=== PATIENT | female | born 1935 | race Caucasian/White ===

== ENCOUNTER 2016-09-14 20:11 | Inpatient (IN) | payer MEDICARE, OTHER ==
[2016-09-14 20:28] VITALS: BP 123/64
[2016-09-14] MEDS ORDERED: Magnesium Hydroxide (MOM) 30 mL UDC PO PRN (20:38)
[2016-09-15] MEDS: Multivitamin Tab PO SCH (08:25)
[2016-09-15] MEDS: Maalox 30 mL Cup PO PRN (22:09)
[2016-09-16] MEDS: Ipratropium Neb 0.5 mg/2.5 mL UD HHN PRN ×2 (07:43→16:22)
[2016-09-16] MEDS: Multivitamin Tab PO SCH (08:52)
--- NOTE | 2016-09-17 01:00 | Progress Notes ---
DATE: 09/16/2016 Case was discussed with staff of the patient, reviewed records. The patient continues to be agitated and delusional. Continues to be unpredictable, impulsive, and very poor insight. Unable to make safe plan for self-care. Continues to be hyperverbal. The patient is on Risperdal 0.5 mg twice a day that I started her on yesterday and so far she is compliant with the medication with no side effects, no sedation, no nausea, and no extrapyramidal symptoms, and we will continue to work with the patient in group therapy, milieu therapy, and adjust the medication as needed. JOB# [id number]
[2016-09-17] MEDS: Maalox 30 mL Cup PO PRN (09:48)
[2016-09-17] MEDS: Multivitamin Tab PO SCH (09:48)
--- NOTE | 2016-09-17 19:38 | History & Physical ---
ADMIT DATE: 09/15/2016 IDENTIFYING INFORMATION: The patient is an 81-year-old female. CHIEF COMPLAINT: "I needed a cigarette." HISTORY OF PRESENT ILLNESS: The patient was admitted on a hold for grave disability, danger to self and danger to others. The patient apparently has been acting aggressive. A elementary school social worker was called because of agitation, aggressive behavior, delusional, psychotic. When I talked to the patient, she was hyperverbal. She was minimizing the event that led to her admission. She reports she had no problems until last week, she was in a psych facility, but then later, she admits that she tried to overdose on boric acid at age 17. She believed that she has a connection mentally with her boyfriend and she could see what he sees. She has not been sleeping or eating well. She is unpredictable, impulsive, unable to make safe plan for self-care. PAST PSYCHIATRIC HISTORY: Is big. This patient has prior psychiatric admission for prior suicide attempt. PAST MEDICAL HISTORY ALLERGIES: The patient is allergic to PENICILLIN, SULFONAMIDE ANTIBIOTIC. The patient is unable to tell me if she has any medical condition or not. FAMILY AND SOCIAL HISTORY: The patient reports that she is . She has a boy that is 40 years of age, but yet at the same time, she told me she had 11th grade education because she got and I am not sure. She was unable to tell me what happened to that . She reports she is a [employer]. She reports no substance abuse; however, the staff reported that she has been med seeking. She has a boyfriend. I asked her about his age, she was unable to tell me. She denies any family history of psychotic disorder; however, she is a poor historian. She denies having any legal problem. MENTAL STATUS EXAMINATION: The patient is appropriately dressed, not well groomed. She was hyperverbal, delusional, believes she has a connection mentally with her boyfriend and she can see the same thing that he sees. The patient denies any intent to harm herself or anybody. She has not been sleeping or eating well. She was able to tell me her date of . She was able to tell me the current President, who was before him; however, she was hyperverbal, delusional, unable to make safe plan for self-care, unpredictable, impulsive. She seems to have average intelligence. Her long and short term memory is intact. Her insight, she does not believe to have a problem. She believes she is here because she wants a cigarette. Her insight and judgment are impaired. IMPRESSION: AXIS I: Psychosis, not otherwise specified; rule out bipolar disorder with psychosis. The patient denies substance abuse problem, rule out drug-induced psychosis. Her assets, she wants to get help. Negative, poor coping skills. INITIAL TREATMENT PLAN: The patient will be started on Risperdal. We will do group therapy, milieu therapy, and individual therapy. ESTIMATED LENGTH OF STAY: 3-7 days. DISCHARGE CRITERIA: Decrease in psychosis, agitation, having a good place to go to after discharge, and outpatient treatment. [facility]# [id number]
[2016-09-17] MEDS: Ipratropium Neb 0.5 mg/2.5 mL UD HHN PRN (22:14)
--- NOTE | 2016-09-18 04:32 | Progress Notes ---
DATE: 09/17/2016 Case was discussed with staff of the patient, reviewed records. The patient continues to be rambling, delusional. Continues to be unable to make safe plan for self-care. Continues to have poor insight with pressured speech, generally uncooperative, having multiple somatic complaints, minimizing the events that led to her admission, talking about her fiance, and we will continue to work with the patient in group therapy, milieu therapy, and adjust the medication as needed. I did initiate her on Risperdal 0.5 mg twice a day yesterday, so we will make further adjustments later and I will continue to work with the patient in group therapy, milieu therapy, and adjust the medication as needed. JOB# [id number]
[2016-09-18] MEDS: Ipratropium Neb 0.5 mg/2.5 mL UD HHN PRN (05:53)
[2016-09-18] MEDS: Multivitamin Tab PO SCH (08:45)
--- NOTE | 2016-09-18 21:58 | General Progress Note ---
Subjective - Review of Systems Service Date: 09/18/16 Subjective: Patient doing fine denied any complaints nursing staff reported pt's BP still remains high Objective - Physical Exam Vitals and I&O: Vital Signs Temp 97.6 F 09/18/16 20:13 Pulse 103 09/18/16 20:13 Resp 20 09/18/16 20:13 BP 176/95 09/18/16 20:13 Pulse Ox 91 09/18/16 20:13 Intake & Output 09/18/16 09/18/16 09/19/16 06:59 18:59 06:59 Intake Total 240 800 120 Balance 240 800 120 Intake: Oral 240 800 120 Other: # Voids 3 3 3 # Bowel Movements 0 1 0 Active Medications: Current Medications Acetaminophen (Tylenol) 650 mg PO Q4HR PRN PRN Reason: Pain (Mild) Stop: 11/13/16 20:37 Al Hydrox/Mg Hydrox/Simethicone (Maalox) 30 ml PO Q4HR PRN PRN Reason: GI DISTRESS Stop: 11/13/16 20:37 Last Admin: 09/17/16 09:48 Dose: 30 ml Clonidine HCl (Catapres) 0.1 mg PO Q6HR PRN PRN Reason: SBP>180 Stop: 11/14/16 15:52 Last Admin: 09/15/16 20:45 Dose: 0.1 mg Ipratropium [place] (Atrovent Neb 0.5mg/2.5ml) 0.5 mg HHN Q4HRT PRN PRN Reason: Short of breath Stop: 11/13/16 22:59 Last Admin: 09/18/16 05:53 Dose: 0.5 mg Lisinopril (Zestril) 20 mg PO DAILY OSMANI Stop: 11/17/16 17:11 Lorazepam (Ativan) 0.5 mg PO Q4HR PRN; Protocol PRN Reason: Anxiety Stop: 10/14/16 20:37 Multivitamins/Vitamin C (Theragran) 1 tab PO DAILY OSMANI Stop: 11/14/16 08:59 Last Admin: 09/18/16 08:45 Dose: 1 tab Nitrofurantoin Macrocrystals (Macrobid) 100 mg PO BID OSMANI PRN Reason: Protocol Stop: 11/15/16 19:44 Last Admin: 09/18/16 17:06 Dose: 100 mg Phenazopyridine HCl (Pyridium) 100 mg PO TID OSMANI Stop: 11/15/16 20:59 Last Admin: 09/18/16 21:28 Dose: 100 mg Risperidone (Risperdal) 0.5 mg PO BID OSMANI PRN Reason: Protocol Stop: 11/14/16 16:59 Last Admin: 09/18/16 17:06 Dose: 0.5 mg Zolpidem Tartrate (Ambien) 5 mg PO HS PRN PRN Reason: Insomnia Stop: 11/13/16 20:37 Last Admin: 09/18/16 21:28 Dose: 5 mg Cardiovascular: Regular rate Lungs: Clear to auscultation Assessment/Plan - Problem List Patient Problems: All Active Problems COPD (chronic obstructive pulmonary disease) (Acute) HTN (hypertension) (Acute) I10 Weakness (Acute) - Assessment Assessment: HTN UTI COPD Nicotine depenancy Psych disorder - Plan Plan: Lisinopril 10mg stat given Lisinopril increased to 20 mg daily Monitor BP Continue Macrobid DC pyridium Psych Rx per Psychiatrist Smoking cessation advised Plan of care discussed with nursing staff
[2016-09-19] MEDS: Ipratropium Neb 0.5 mg/2.5 mL UD HHN PRN ×2 (01:48→17:04)
--- NOTE | 2016-09-19 04:27 | History & Physical ---
ADMIT DATE: 09/14/2016 REASON FOR ADMISSION: Psychiatric disorder. HISTORY OF PRESENT ILLNESS: This is an 81-year-old female with underlying history of hypertension and COPD who was admitted for evaluation of the underlying psychiatric illness by Dr. Hussein. Dr. Hussein requested ____ this patient. The patient says that she is doing fine. Denies any complaints or concerns. PAST MEDICAL HISTORY: COPD, hypertension, chronic smoker, ____. PAST SURGICAL HISTORY: Noncontributory. SOCIAL HISTORY: Positive for daily tobacco smoking. No reported alcohol or street drug use. CURRENT MEDICATIONS: Per medication reconciliation is reviewed. ALLERGIES: ALLERGIC TO PENICILLIN AND SULFA. REVIEW OF SYSTEMS: As per HPI. A 12-point system review appears negative. PHYSICAL EXAMINATION: VITAL SIGNS: Temperature 97.4, pulse 88, respiration 18, blood pressure 122/64. HEART: S1 normal. LUNGS: Clear to auscultation. ABDOMEN: Soft. No distention. NEUROLOGIC: The patient is awake, somewhat confused, grossly nonfocal ____ edema. ASSESSMENT: 1. Hypertension. 2. Urinary tract infection. 3. Chronic obstructive pulmonary disease. 5. Chronic smoker. 6. Psych disorder. PLAN: The patient will be continued on lisinopril, monitor blood pressure closely, continue Pyridium and Macrobid. Albuterol and Atrovent inhaler as needed. Smoking cessation advised. Psych ____ by psychiatrist. The patient medically still ____ [facility]. Thank you Dr. Hussein for allowing me to participate in the care of this patient. JOB# [id number]
--- NOTE | 2016-09-19 06:46 | Progress Notes ---
DATE: 09/18/2016 SUBJECTIVE: The patient is currently in the hospital, hold for grave disability. She was aggressive, acting up behaviors, delusional, psychotic. On [id number], the patient is a poor historian, very fixated on her roommate at her previous facility, rambling on, difficult to redirect, not oriented. The patient continues to require a lot of prompting and redirection. Sleeping fairly well and eating well. ASSESSMENT: The patient is symptomatic, rambling, seems tangential on exam, poor historian, concerns for behaviors, given her presentation. PLAN: We will continue to monitor. Dr. Arevalo had been seeing this patient in my absence, noting continued somatic complaints, pressured speech, not cooperative. We will continue to titrate medications, monitor closely, and increase collateral. JOB# [id number]
[2016-09-19] MEDS: Multivitamin Tab PO SCH (09:44)
[2016-09-20] MEDS: Ipratropium Neb 0.5 mg/2.5 mL UD HHN PRN (03:02)
--- NOTE | 2016-09-20 05:20 | Progress Notes ---
DATE: 09/19/2016 SUBJECTIVE: The patient was seen, chart reviewed, discussed with staff. The patient remains symptomatic, still pretty confused, does not really know why she is here, still rambling at times, currently gravely disabled, unable to locate a place for her to live at this time and she cannot care for herself at this time, concerns for her ability to handle her basic food, clothing, and chcf. She is calm at this time, no distress noted, no combative behaviors. Medications were reviewed. No side effects. ASSESSMENT: The patient remains symptomatic, still somewhat confused, disoriented, gravely disabled, concerns for her ability to handle her basic needs. PLAN: We will continue to monitor, monitor closely for any side effects. We are working with Social Work to find placement. JOB# [id number]
[2016-09-20] MEDS: Multivitamin Tab PO SCH (09:53)
--- NOTE | 2016-09-20 12:53 | General Progress Note ---
Subjective - Review of Systems Service Date: 09/20/16 Subjective: Patient doing fine denied any complaints BP seems better Objective - Physical Exam Vitals and I&O: Vital Signs Temp 71 F 09/20/16 06:32 Pulse 94 09/20/16 09:53 Resp 20 09/20/16 08:00 BP 121/58 09/20/16 09:53 Pulse Ox 96 09/20/16 07:30 Intake & Output 09/19/16 09/20/16 09/20/16 18:59 06:59 18:59 Intake Total 1600 240 Balance 1600 240 Weight (lbs) 62.233 kg Intake: Oral 1600 240 Other: # Voids 4 3 # Bowel Movements 0 Active Medications: Current Medications Acetaminophen (Tylenol) 650 mg PO Q4HR PRN PRN Reason: Pain (Mild) Stop: 11/13/16 20:37 Last Admin: 09/20/16 10:39 Dose: 650 mg Al Hydrox/Mg Hydrox/Simethicone (Maalox) 30 ml PO Q4HR PRN PRN Reason: GI DISTRESS Stop: 11/13/16 20:37 Last Admin: 09/17/16 09:48 Dose: 30 ml Clonidine HCl (Catapres) 0.1 mg PO Q6HR PRN PRN Reason: SBP>180 Stop: 11/14/16 15:52 Last Admin: 09/15/16 20:45 Dose: 0.1 mg Ipratropium [place] (Atrovent Neb 0.5mg/2.5ml) 0.5 mg HHN Q4HRT PRN PRN Reason: Short of breath Stop: 11/13/16 22:59 Last Admin: 09/20/16 03:02 Dose: 0.5 mg Lisinopril (Zestril) 20 mg PO DAILY OSMANI Stop: 11/17/16 17:11 Last Admin: 09/20/16 09:53 Dose: Not Given Lorazepam (Ativan) 0.5 mg PO Q4HR PRN; Protocol PRN Reason: Anxiety Stop: 10/14/16 20:37 Last Admin: 09/19/16 14:16 Dose: 0.5 mg Multivitamins/Vitamin C (Theragran) 1 tab PO DAILY OSMANI Stop: 11/14/16 08:59 Last Admin: 09/20/16 09:53 Dose: 1 tab Nitrofurantoin Macrocrystals (Macrobid) 100 mg PO BID OSMANI PRN Reason: Protocol Stop: 11/15/16 19:44 Last Admin: 09/20/16 09:53 Dose: 100 mg Phenazopyridine HCl (Pyridium) 100 mg PO TID OSMANI Stop: 11/15/16 20:59 Last Admin: 09/20/16 09:53 Dose: 100 mg Risperidone (Risperdal) 0.5 mg PO BID OSMANI PRN Reason: Protocol Stop: 11/14/16 16:59 Last Admin: 09/20/16 09:53 Dose: 0.5 mg Zolpidem Tartrate (Ambien) 5 mg PO HS PRN PRN Reason: Insomnia Stop: 11/13/16 20:37 Last Admin: 09/19/16 21:27 Dose: 5 mg Cardiovascular: Regular rate, Normal S1, Normal S2 Lungs: Clear to auscultation Assessment/Plan - Problem List Patient Problems: All Active Problems COPD (chronic obstructive pulmonary disease) (Acute) HTN (hypertension) (Acute) I10 Weakness (Acute) - Assessment Assessment: HTN UTI COPD Nicotine depenancy Psych disorder - Plan Plan: BP better Continue lisinopril 20mg daily Monitor BP Continue Macrobid DC pyridium Psych Rx per Psychiatrist Smoking cessation advised Plan of care discussed with nursing staff Nutritional Asmnt/Malnutr-PDOC - Dietary Evaluation Malnutrition Findings (Please click <Entered> for more info): Nutritional Asmnt/Malnutrition Start: 09/19/16 14: 18 Text: Status: Complete Freq: Document 09/19/16 14:18 GSUN (Rec: 09/19/16 14:28 GSUN [id number]) Nutritional Asmnt/Malnutrition Patient General Information Nutritional Screening Moderate Risk Screening Diagnosis Psychosis Pertinent Medical Hx/Surgical Hx HTN, COPD, chronic smoker Subjective Information 81 year old from SNF. Per H&P, pt is hyperverbal and delusional, which RD also observed from speaking to pt. Pt is a poor historian, most responses were irrelevant to RD's questions. Observed pt ambulating from bathroom to bed. Properly calibrated bedscale, CBW 137.2lb. Pt stated the food is good. Avg PO itnake 75-100%, meeting nutritional needs. Pt is edentulous, denied difficulties chewing/ swallowing. Current Diet Order/ Nutrition Support MYA, chopped Pertinent Medications Maalox, Theragran Pertinent Labs No labs. Nutritional Hx/Data Height 12.7 cm Height (Calculated Centimeters) 12.7 Current Weight (lbs) 62.233 kg Weight (Calculated Kilograms) 62.2 Weight (Calculated Grams) 97666.9 [place] Body Weight 100 Weight Status Overweight GI Symptoms Food Allergies No Skin Integrity/Comment: Mandeep 20. Skin intact. Current %PO Good (75-100%) Estimated Nutritional Goals Calories/Kcals/Kg IBW 100lb/45.5kg Kcals Calculated 1138-1365kcal (25-30kcal/kg) Protein g/kg: IBW Protein Calculated 46g (1g/kg) Fluid: ml 1138-1365ml (1ml/kcal) Nutritional Problem 1. Problem Problem No nutritional problems at this time. Intervention/Recommendation Comments 1. Continue with MYA chopped. Avg PO intake is adequate. 2. Briefly discussed healthy weight for age. Expected Outcomes/Goals Expected Outcomes/Goals 1. PO intake conitnue to meet at least 75% of estimated nutritional needs.
[2016-09-21] MEDS: Ipratropium Neb 0.5 mg/2.5 mL UD HHN PRN ×2 (01:27→14:02)
--- NOTE | 2016-09-21 04:36 | Progress Notes ---
DATE: 09/20/2016 SUBJECTIVE: The patient was seen, chart reviewed, discussed with staff. The patient is currently in the hospital, gravely disabled, aggressive, agitated, delusional, psychotic and hyperverbal on [id number]. The patient remains somewhat disoriented, but she is calmer on exam. Needs prompting for ADLs and prompting to eat. Poor Insight, still with pressured speech, tangential, jumping from one topic to the next. Still believes that she can leave the hospital and take care of herself, but we have concerns about her ability to counter her basic food, clothing and senior care, concerns for grave disability. She is taking medications. We will continue Risperdal. ASSESSMENT: The patient remains disoriented, not safe for a lower level of care at this time. We are trying to help her with placement. PLAN: We will continue to make medication adjustments to target her symptoms. [facility]# [id number]
[2016-09-21] MEDS: Multivitamin Tab PO SCH (09:06)
--- NOTE | 2016-09-22 02:35 | Progress Notes ---
DATE: 09/21/2016 SUBJECTIVE: The patient is seen, chart reviewed, and discussed with staff. The patient remains gravely disabled, unkempt, not sleeping very well at night, still with pressured speech at times, tangential, disoriented, still wants to leave the hospital, but we have no place to send her at this time. She cannot care for her basic food, clothing, and nursing home. Staff is trying to ___prompt and tend__ to her ADLs better as she is pretty unkempt. ASSESSMENT: The patient is disoriented, appearing somewhat over sedated, not sleeping well at night. Either, it is because she is not sleeping well or it is because of the medications. PLAN: We will lower IM dosing __of meds;__ We will discontinue a.m. Risperdal to see if this helps to her sedation. We will continue p.r.n. dosing of sleep medications at night time. [facility]# [id number] [facility]
[2016-09-22] MEDS: Multivitamin Tab PO SCH (09:22)
[2016-09-22] MEDS: Ipratropium Neb 0.5 mg/2.5 mL UD HHN PRN (11:06)
[2016-09-22] MEDS: Maalox 30 mL Cup PO PRN (14:50)
[2016-09-23] MEDS: Ipratropium Neb 0.5 mg/2.5 mL UD HHN PRN ×2 (00:04→17:19)
--- NOTE | 2016-09-23 00:59 | Progress Notes ---
DATE: 09/22/2016 SUBJECTIVE: The patient is seen, chart reviewed, discussed with staff. The patient remains somewhat confused, symptomatic, currently gravely disabled, unable to care for her basic needs. She states she wants to look for a place for herself, but is really____ not able to. Her thought processes were too fragmented, disoriented. She has been calm, cooperative, getting along well with staff and peers, still requiring prompting for ADLs, prompting for eating. ASSESSMENT: The patient is disoriented, fragmented thought processes, unable to care for her basic needs, but on a positive note, she is more awake. PLAN: Continue to monitor, it seems the lower____ doses of her medications did help, we will monitor closely for any overt side effects and continue to work____ on placements. JOB# [id number]
[2016-09-23] MEDS: Multivitamin Tab PO SCH (09:35)
[2016-09-24] MEDS: Multivitamin Tab PO SCH (08:26)
[2016-09-24] MEDS: Maalox 30 mL Cup PO PRN (11:42)
--- NOTE | 2016-09-24 11:43 | Progress Notes ---
DATE: 09/23/[address] Hussein. SUBJECTIVE: The patient was seen and evaluated. The patient's chart reviewed. The patient is an 81-year-old female who was initially brought in here. After she was brought in on hold, acting very aggressive and bizarre and delusional. Overnight nursing staff reported that the patient has been heavily responding to herself, talking to herself, hyperverbal, although some noted improvement. On [id number] evaluation, the patient perseverates that she is engaged and that she is going to have her ____ outside ____. MENTAL STATUS EXAMINATION: Still disorganized, delusional, poor insight, judgment, and impulse control. ASSESSMENT AND PLAN: The patient is an 81-year-old female who continues to be disorganized and psychotic. We will continue with primary psychiatrist's treatment and plan and goals, which includes risperidone 0.5 mg at nighttime to target the patient's ____ psychotic thought process. JOB# [id number]
[2016-09-24] MEDS: Ipratropium Neb 0.5 mg/2.5 mL UD HHN PRN ×2 (16:09→22:23)
--- NOTE | 2016-09-24 23:55 | Progress Notes ---
DATE: 09/24/[address] Hussein. SUBJECTIVE: Nursing staff reported that the patient is observed to be hyperverbal at times and pacing in and out. Today on [id number] evaluation, the patient is observed to be pacing in the hallway, minimally interactive and minimally participating. She is preoccupied ____. MENTAL STATUS EXAMINATION: Still disorganized, psychotic and internally preoccupied. ASSESSMENT AND PLAN: The patient is an 81-year-old female who continues to present still very disorganized, very disoriented and fragmented thought process, unable to care for her basic needs. We will continue monitoring, evaluating and continue with primary psychiatric treatment plan and goals. JOB# [id number]
[2016-09-25] MEDS: Multivitamin Tab PO SCH (09:09)
[2016-09-25] MEDS: Ipratropium Neb 0.5 mg/2.5 mL UD HHN PRN (13:56)
[2016-09-25] MEDS: Maalox 30 mL Cup PO PRN (21:09)
[2016-09-26] MEDS: Ipratropium Neb 0.5 mg/2.5 mL UD HHN PRN ×5 (01:13→22:39)
--- NOTE | 2016-09-26 08:49 | Progress Notes ---
DATE: 09/25/2016 SUBJECTIVE: The patient was seen, chart reviewed, and discussed with staff. The patient remains hyperverbal, preoccupied, pacing, withdrawn, confused, ____ still awaiting confirmation of placement. The patient is unable to care for her basic needs. She is confused, ____ however, she is tolerating __treatment__ eating with prompting, ADLs with prompting. ASSESSMENT: The patient is disorganized, disoriented, fragmented thought processes, requiring a lot of redirection. PLAN: Continue to monitor. We will coordinate care with psychotherapist social worker. JOB# [id number] [facility]
[2016-09-26] MEDS: Multivitamin Tab PO SCH (09:11)
[2016-09-26] MEDS: Maalox 30 mL Cup PO PRN (13:13)
[2016-09-27] MEDS: Ipratropium Neb 0.5 mg/2.5 mL UD HHN PRN ×3 (04:28→22:08)
--- NOTE | 2016-09-27 05:39 | Progress Notes ---
DATE: 09/26/2016 SUBJECTIVE: The patient was seen, chart reviewed, discussed with staff. The patient is still somewhat disoriented and confused. Placement has been confirmed, does seem to be some improvement, and now she is more redirectable, seems to be tolerating the medications, no side effects. No agitation. No escalation of behaviors. Sleeping well, eating well. ASSESSMENT: Improvement has been noted. We will continue to adjust and titrate medications, no side effects. The patient also is with better attention to ADLs, more amenable to care. Still somewhat disoriented, but likely approaching her baseline. PLAN: Continue to monitor and titrate medications as tolerated. We will coordinate care with social work regarding safe discharge plan with psychiatric followup. We will confirm placement. JOB# [id number]
[2016-09-27] MEDS: Maalox 30 mL Cup PO PRN ×2 (06:09→21:07)
[2016-09-27] MEDS: Multivitamin Tab PO SCH (08:27)
[2016-09-28] MEDS: Ipratropium Neb 0.5 mg/2.5 mL UD HHN PRN ×3 (07:19→19:29)
--- NOTE | 2016-09-28 08:15 | Progress Notes ---
DATE: 09/27/2016 SUBJECTIVE: The patient is seen, chart reviewed, discussed with staff. The patient remains disoriented, confused, states that she lives in ____, states she is in love with a man there, confused about her placement, does not really know what is going on, needs a lot of redirection, but on a positive note, she is not agitated or aggressive. ASSESSMENT: The patient remains somewhat confused, disoriented, concerns for ability to care for basic food, clothing and longterm. PLAN: Continue to monitor. We have not been able to confirm placement for her until the end of the week, until then we will monitor, titrate medications, and try to target her confusion symptoms. [facility]# [id number]
[2016-09-28] MEDS: Multivitamin Tab PO SCH (09:09)
[2016-09-29] MEDS: Ipratropium Neb 0.5 mg/2.5 mL UD HHN PRN ×4 (03:32→22:30)
--- NOTE | 2016-09-29 05:23 | Progress Notes ---
DATE: 09/28/2016 SUBJECTIVE: The patient was seen, chart reviewed, and discussed with staff. The patient remains disoriented, wants to go back to her previous facility, but apparently Adult Protective Services is involved and does not want her going back there. Even the patient herself states that it was a bad place __to be___ , but now she wants to go back stating that she __knows___ somebody there. We have confirmed placement at this time at [facility], but the patient refusing to go, stating "I don't know anything about that place." She seems to not comprehend the idea that she cannot go back to the previously place. She is rambling. She does get somewhat aggressive and intrusive to the point that I have to back away. ASSESSMENT: The patient remains confused, disoriented, ruminative, concerns for her ability to comprehend and reason, she cannot take care of her basic needs and is refusing current resources being provided. JOB# [id number] [facility]
[2016-09-29] MEDS: Multivitamin Tab PO SCH (08:39)
--- NOTE | 2016-09-30 07:17 | Progress Notes ---
DATE: 09/29/2016 SUBJECTIVE: The patient was seen, chart reviewed, discussed with staff. The patient remains disoriented, still refusing to go to the facility that we found for her, wanted to go to previous facility, but as of right now she cannot go back there. She is encouraging us to try to call them again. The patient is still loud, disoriented, rambling, requiring a lot of redirection, prompting. ASSESSMENT: The patient remains symptomatic, currently gravely disabled, refusing placement __and there are still___ safety concerns. PLAN: Continue to monitor and titrate medications. JOB# [id number] [facility]
[2016-09-30] MEDS: Multivitamin Tab PO SCH (09:34)
[2016-09-30] MEDS: Ipratropium Neb 0.5 mg/2.5 mL UD HHN PRN ×3 (11:30→22:21)
[2016-09-30] MEDS: Maalox 30 mL Cup PO PRN (13:10)
--- NOTE | 2016-10-01 00:04 | Progress Notes ---
DATE: 09/30/2016 SUBJECTIVE: The patient was seen, chart reviewed, discussed with staff. The patient is currently in the hospital. She was aggressive, delusional, hyperverbal, history of overdose in the past, chronic history of mental illness, depression. On [id number], the patient remains irritable, continues to refuse placements. She seems somewhat delusional about her placement demanding to go back to the previous facility, but apparently she cannot go back there, fixated on someone that she states that she is "in love with." She is pacing, wandering. Staff noticed she remains irritable, rude, intrusive, demanding. ASSESSMENT: The patient remains symptomatic, still with some delusions, fixations, ruminations, refusing placement, but has no alternative placement other than the resources we have offered her. PLAN: We will continue to monitor. The patient is not safe for a lower level of care at this time. [facility]# [id number]
[2016-10-01] MEDS: Multivitamin Tab PO SCH (08:52)
[2016-10-01] MEDS: Ipratropium Neb 0.5 mg/2.5 mL UD HHN PRN ×2 (14:07→23:27)
--- NOTE | 2016-10-02 00:33 | Progress Notes ---
DATE: SUBJECTIVE: The patient was seen, chart reviewed, and discussed with staff. The patient is currently in the hospital. She was aggressive, agitated, noted to be delusional, psychotic, hyperverbal, noted to have a long psychiatric history by Dr. Arevalo, who initially saw this patient. On [id number], the patient remains intrusive, irritable, demanding to go back "home." However, APS is involved. She is refusing essentially to go to the placement that was established and confirmed by social work here. The patient was loud, requiring some redirection; however, she is redirectable. Poor attention ADLs, somewhat disheveled, but she is taking her medications. ASSESSMENT: The patient is loud, pressured, intrusive, but redirectable, irritable, difficult to interrupt at times. PLAN: Continue to monitor. Continue to work on the patient's coping. Continue to explain over and over again regarding placement and why she is at this time based on the information that we have unable to return back to the place she came from. We will also increase Risperdal today to 1 mg. JOB# [id number]
[2016-10-02] MEDS: Multivitamin Tab PO SCH (08:17)
[2016-10-02] MEDS: Maalox 30 mL Cup PO PRN (08:28)
[2016-10-02] MEDS: Ipratropium Neb 0.5 mg/2.5 mL UD HHN PRN (11:00)
--- NOTE | 2016-10-02 19:29 | General Progress Note ---
Subjective - Review of Systems Service Date: 10/02/16 Subjective: Patient doing fine no reported concern Objective - Results Recent Labs: Laboratory Last Values TSH 0.43 uIU/ml (0.34-5.60) 09/24/16 19:41 RPR NONREACTIVE (NONREACTIVE) 09/24/16 19:41 - Physical Exam Vitals and I&O: Vital Signs Temp 97.6 F 10/02/16 15:05 Pulse 88 10/02/16 15:05 Resp 18 10/02/16 15:05 BP 125/67 10/02/16 15:05 Pulse Ox 98 10/02/16 15:05 Intake & Output 10/02/16 10/02/16 10/03/16 06:59 18:59 06:59 Intake Total 120 950 Balance 120 950 Intake: Oral 120 950 Other: # Voids 3 4 # Bowel Movements 1 1 Active Medications: Current Medications Acetaminophen (Tylenol) 650 mg PO Q4HR PRN PRN Reason: Pain (Mild) Stop: 11/13/16 20:37 Last Admin: 09/20/16 10:39 Dose: 650 mg Al Hydrox/Mg Hydrox/Simethicone (Maalox) 30 ml PO Q4HR PRN PRN Reason: GI DISTRESS Stop: 11/13/16 20:37 Last Admin: 10/02/16 08:28 Dose: 30 ml Clonidine HCl (Catapres) 0.1 mg PO Q6HR PRN PRN Reason: SBP>180 Stop: 11/14/16 15:52 Last Admin: 09/15/16 20:45 Dose: 0.1 mg Ipratropium Nora (Atrovent Neb 0.5mg/2.5ml) 0.5 mg HHN Q4HRT PRN PRN Reason: Short of breath Stop: 11/13/16 22:59 Last Admin: 10/02/16 11:00 Dose: 0.5 mg Lisinopril (Zestril) 20 mg PO DAILY OSMANI Stop: 11/24/16 08:59 Last Admin: 10/02/16 08:17 Dose: 20 mg Lorazepam (Ativan) 0.5 mg PO Q4HR PRN; Protocol PRN Reason: Anxiety Stop: 10/14/16 20:37 Last Admin: 10/02/16 14:28 Dose: 0.5 mg Multivitamins/Vitamin C (Theragran) 1 tab PO DAILY OSMANI Stop: 11/14/16 08:59 Last Admin: 10/02/16 08:17 Dose: 1 tab Phenazopyridine HCl (Pyridium) 100 mg PO TID OSMANI Stop: 11/15/16 20:59 Last Admin: 10/02/16 14:27 Dose: 100 mg Risperidone 1 mg/ Risperidone (0.5 mg) 1.5 mg PO HS OSMANI Stop: 12/01/16 20:59 Zolpidem Tartrate (Ambien) 5 mg PO HS PRN PRN Reason: Insomnia Stop: 11/13/16 20:37 Last Admin: 10/01/16 20:55 Dose: 5 mg General: Moderate distress Cardiovascular: Regular rate Lungs: Clear to auscultation Assessment/Plan - Problem List Patient Problems: All Active Problems COPD (chronic obstructive pulmonary disease) (Acute) HTN (hypertension) (Acute) I10 Weakness (Acute) - Assessment Assessment: HTN UTI COPD Nicotine depenancy Psych disorder - Plan Plan: Continue lisinopril 20mg daily Monitor BP Psych Rx per Psychiatrist Smoking cessation advised Plan of care discussed with nursing staff Nutritional Asmnt/Malnutr-PDOC - Dietary Evaluation Malnutrition Findings (Please click <Entered> for more info): Nutritional Asmnt/Malnutrition Start: 09/19/16 14: 18 Text: Status: Complete Freq: Document 09/19/16 14:18 GSUN (Rec: 09/19/16 14:28 GSUN [id number]) Nutritional Asmnt/Malnutrition Patient General Information Nutritional Screening Moderate Risk Screening Diagnosis Psychosis Pertinent Medical Hx/Surgical Hx HTN, COPD, chronic smoker Subjective Information 81 year old from SNF. Per H&P, pt is hyperverbal and delusional, which RD also observed from speaking to pt. Pt is a poor historian, most responses were irrelevant to RD's questions. Observed pt ambulating from bathroom to bed. Properly calibrated bedscale, CBW 137.2lb. Pt stated the food is good. Avg PO itnake 75-100%, meeting nutritional needs. Pt is edentulous, denied difficulties chewing/ swallowing. Current Diet Order/ Nutrition Support MYA, chopped Pertinent Medications Maalox, Theragran Pertinent Labs No labs. Nutritional Hx/Data Height 12.7 cm Height (Calculated Centimeters) 12.7 Current Weight (lbs) 62.233 kg Weight (Calculated Kilograms) 62.2 Weight (Calculated Grams) 12919.9 [place] Body Weight 100 Weight Status Overweight GI Symptoms Food Allergies No Skin Integrity/Comment: Mandeep 20. Skin intact. Current %PO Good (75-100%) Estimated Nutritional Goals Calories/Kcals/Kg IBW 100lb/45.5kg Kcals Calculated 1138-1365kcal (25-30kcal/kg) Protein g/kg: IBW Protein Calculated 46g (1g/kg) Fluid: ml 1138-1365ml (1ml/kcal) Nutritional Problem 1. Problem Problem No nutritional problems at this time. Intervention/Recommendation Comments 1. Continue with MYA chopped. Avg PO intake is adequate. 2. Briefly discussed healthy weight for age. Expected Outcomes/Goals Expected Outcomes/Goals 1. PO intake conitnue to meet at least 75% of estimated nutritional needs.
--- NOTE | 2016-10-03 06:19 | Progress Notes ---
DATE: 10/02/2016 SUBJECTIVE: The patient was seen, chart reviewed, discussed with staff. The patient continues to be quite manic, pressured, hyperverbal. Still intrusive, irritable. On a positive note, she is accepting a placement that was concern, she seemed pretty fixated on going to her previous facility, but could not. She found out that the new facility ____ is nearby the area that she would like to live in. Noted to be sleeping well, eating well. She seems a little bit more redirectable, calmer, following __unit__ direction. Less agitated, less intrusive, tolerant to medications, no side effects. ASSESSMENT: The patient remains symptomatic, still hyperverbal, still intrusive, and irritable, but improvement noted. PLAN: We will continue to monitor. We will continue to titrate her medications. Monitor for side effects and coordinate care with social work regarding safe discharge plan, good psychiatric followup. JOB# [id number] L[place]
[2016-10-03] MEDS: Multivitamin Tab PO SCH (08:47)
[2016-10-03] MEDS: Ipratropium Neb 0.5 mg/2.5 mL UD HHN PRN ×2 (09:35→15:29)
[2016-10-03] MEDS: Maalox 30 mL Cup PO PRN (16:10)
--- NOTE | 2016-10-04 01:32 | Discharge Summary ---
DATE OF DISCHARGE: 10/03/2016 JUSTIFICATION FOR HOSPITALIZATION: Grave disability, danger to self, danger to others, aggressive. HISTORY OF PRESENT ILLNESS: An 81-year-old female admitted on hold, aggressive, agitation, delusional, psychotic, hyperverbal, not damian for safety, history of mental illness, poor p.o. intake, unpredictable, impulsive. PAST PSYCHIATRIC HISTORY: Prior psych admissions in the past. ALLERGIES: PENICILLIN, SULFONAMIDE. PAST MEDICAL HISTORY: Please see full H and P. SOCIAL HISTORY: The patient is , had been living at a facility. 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 Denying any chemical dependency history. MENTAL STATUS EXAMINATION: Please see full psych eval for details. PROVISIONAL DIAGNOSIS: Psychosis, not specified, rule out bipolar with psychosis. MEDICAL: Please see full H and P. LABORATORY DATA: Reviewed. HOSPITAL COURSE: After initial assessment, the patient was started on antipsychotic medications. Over the course of the hospitalization, she did improve, her mood improved. Her affect improved. She was fairly intrusive and irritable and delusional initially, but over the course of the hospitalization, her mood symptoms resolved, seems to be getting better with staff and peers, redirectable and amenable to placement toward the latter end of her hospitalization, no aggressive symptoms. CONDITION UPON DISCHARGE: Improved. Fair attention to ADLs. Fair eye contact. Speech was within normal limits. Mood "better." Affect flat. Thought processes were grossly linear. No SI, no HI. No psychotic symptoms, no paranoia. No delusions noted, calm, cooperative, insight improved, judgment improved, better impulse control, sleeping well, eating well, following ____ directions. PROVISIONAL DIAGNOSES: Psychosis, unspecified; mood, unspecified, strong; rule out bipolar affective disorder. MEDICAL: Please see full H and P. PROGNOSIS: If the patient follows up with Psychiatry in 7-10 days, takes her medications as directed, prognosis will improve, otherwise guarded. JOB# [id number]
== END 2016-10-03 16:30 | DRG 885 ==
LOC: GERO 20:11
PROVIDERS: ADMIT Psychiatry & Neurology Psychiatry; ATTEND Psychiatry & Neurology Psychiatry
DX: F29 Unspecified psychosis not due to a substance or known physiological condition (principal); J44.9 Chronic obstructive pulmonary disease, unspecified; N39.0 Urinary tract infection, site not specified; I10 Essential (primary) hypertension; F17.210 Nicotine dependence, cigarettes, uncomplicated; F39 Unspecified mood [affective] disorder; F31.9 Bipolar disorder, unspecified; Z88.0 Allergy status to penicillin; Z88.2 Allergy status to sulfonamides; Z71.6 Tobacco abuse counseling
CPT/HCPCS: 36415-UA; 84443-TC; 86592-TC; 87086-90; 90779; 90899; 93005; 94640; 94760; G0410; Z7610